=== PATIENT | female | born 1960 | race Caucasian/White ===

== ENCOUNTER → 2019-05-05 | Day surgery (SDC) | payer BC ==
[2019-05-02 15:03] LABS: BASOPHILS % 0.6 % (0.0-1.0); EOSINOPHILS # (AUTO) 0.2 (0.0-0.4); EOSINOPHILS % 2.4 % (0.0-6.0); HEMATOCRIT 42.8 % (34.2-44.1); LYMPHOCYTES # (AUTO) 2.4 (1.0-3.2); LYMPHOCYTES % 36.1 % (18.0-39.1); MEAN CORPUSCULAR HEMOGLOBIN 28.9 pg (28-32); MEAN CORPUSCULAR HGB CONC 32.7 g/dL (31-35); MEAN CORPUSCULAR VOLUME 88.4 fL (81-99); MONOCYTES # (AUTO) 0.5 (0.2-0.8); MONOCYTES % 7.4 % (4.4-11.3); NEUTROPHILS # (AUTO) 3.5 (2.1-6.9); PLATELET COUNT 315 x10e3/uL (140-360); RED BLOOD COUNT 4.84 x10e6/uL (3.6-5.1); RED CELL DISTRIBUTION WIDTH 13.2 % (11.7-14.4)
--- NOTE | 2019-05-02 15:06 | Diagnostic Imaging Report ---
EXAMINATION: CHEST 2 VIEWS INDICATION: Pre-admit. COMPARISON: None FINDINGS: TUBES and LINES: None. LUNGS: Lungs are well inflated. There is no evidence of pneumonia or pulmonary edema. PLEURA: No pleural effusion or pneumothorax. HEART AND MEDIASTINUM: The cardiomediastinal silhouette is unremarkable. BONES AND SOFT TISSUES: No acute osseous abnormality. UPPER ABDOMEN: No free air under the diaphragm. IMPRESSION: No acute radiographic abnormality. Signed by: Dr. Kayley Mejia MD on 05/02/2019 3:03 PM
[2019-05-02 15:18] LABS: ANION GAP 12.3 mmol/L (8-16); BLOOD UREA NITROGEN 19 mg/dL (7-26); BUN/CREATININE RATIO 23 (6-25); CALCIUM 10.2 mg/dL (8.4-10.2); CARBON DIOXIDE 29 mmol/L (22-29); CHLORIDE 101 mmol/L (98-107); CREATININE, SERUM 0.81 mg/dL (0.57-1.11); EST GLOMERULAR FILTRATION RATE > 60 ML/MIN (60-); GLUCOSE 81 mg/dL (74-118); POTASSIUM 4.3 mmol/L (3.5-5.1); SODIUM 138 mmol/L (136-145)
[~2019-05-05] MED LIST: BUPIVACAINE HCL 0.5% 10ML MPF VIAL INJ ONE; CEFAZOLIN SOD 2 GM/D5W 50ML 50 ML IV ONE; DEXAMETHASONE SOD PHOS INJ 4 MG/ML VIAL ONE; FENTANYL CITRATE/PF 100MCG/2 ML INJ ONE; KETOROLAC TROMETHAMINE 30 MG/ML VIAL ONE; LIDOCAINE HCL 2% LOCAL INJ 5 ML SDV VIAL INJ ONE; MIDAZOLAM HCL 2 MG/2 ML VIAL ONE; MUPIROCIN 2% OINT 22 GM TUBE ONE; ONDANSETRON HCL INJ 2MG/ML 2ML 2 MG/ML VIAL ONE; PROPOFOL IV EMULSION 10 MG/ML 20 ML VIAL ONE; SEVOFLURANE INHAL SOLN 250 ML PEN BTL ONE
--- OUTSIDE RECORDS SUMMARY | 2019-05-05 08:38 | XMS REPORT | Clinical Summary ---
Author Author [facility] Address Unknown Phone Unavailable Care Team Providers Care Gunner'S Mate Name Role Phone Aurelio Castro MD PCP Unavailable Allergies No Known Allergies Medications End Date Status Medication Sig Dispensed Refills Start Date Active levothyroxine (SYNTHROID, TK 1 T PO QD 0 LEVOTHROID) 112 MCG 6 tablet Active PARoxetine (PAXIL) 10 MG 0 tablet 6 Active VITAMIN D2 50,000 unit TK ONE C PO 3 capsule Q WEEK 6 Active levocetirizine (XYZAL) 5 Take 5 mg by 0 MG tablet mouth every evening. Active Problems Problem Noted Date Arthritis of knee 06/18/2016 Right knee pain 06/09/2016 Overview: " Pain, sore, popping, cracking; On and off for 6 months; 1 month " Per paper chart Social History Date Tobacco Use Types Packs/Day Years Used Never Smoker Smokeless Tobacco: Never Used Alcohol Use Drinks/Week oz/Week Comments Yes " seldom" per paper chart Sex Assigned at Date Recorded Not on file Industry Job Start Date Occupation Not on file Not on file Not on file Travel End Travel History Travel Start No recent travel history available. Last Filed Vital Signs Not on file Plan of Treatment Health Maintenance Due Date Last Done Comments COLONOSCOPY SCREENING 2011 SHINGLES VACCINES (#1) 2011 BREAST CANCER SCREENING 05/14/2019 05/14/2017, 10/09/2015, 10/08/2014, Additional history exists INFLUENZA VACCINE 06/22/2019 Results Not on fileafter 05/04/2018 Insurance Type Payer Benefit Subscriber ID Effective Phone Address Plan / Dates Group PPO BCBS BCBS xxxxxxxxxxxx [id number] CHOICE resent PPO/ANTHONY [employer]VILLO PPO Advance Directives Patient has advance care planning documents on file. For more information, megan castillo contact: Rene Montez [address] [place] [address]
--- OUTSIDE RECORDS SUMMARY | 2019-05-05 08:38 | XMS REPORT ---
Author Author [facility] Address Unknown Phone Unavailable Care Team Providers Care Hydrogeology Professor Name Role Phone WALDO MAGALLANES Unavailable Unavailable Problems This patient has no known problems. Allergies, Adverse Reactions, Alerts This patient has no known allergies or adverse reactions. Medications This patient has no known medications. Results Test Description Test Time Test Comments Text Results Atomic Results Result Comments CHEST 2 VIEWS 2019-05-02 15:01:00 [place] [address] Patient Name: LUI ADAMS MR #: [id number] : 1960 Age/Sex: 58/F Req #: [id number] Adm Physician: Ordered by: WALDO MAGALLANES DP Report #: [id number] Location: OR Room/Bed: Procedure: [id number] DX/CHEST 2 VIEWS Exam Date: 05/02/19 Exam Time: 1437 REPORT STATUS: Signed EXAMINATION: CHEST 2 VIEWS INDICATION: Pre-admit. COMPARISON: None FINDINGS: TUBES and LINES: None. LUNGS: Lungs are well inflated. There is no evidence of pneumonia or pulmonary edema. PLEURA: No pleural effusion or pneumothorax. HEART AND MEDIASTINUM: The cardiomediastinal silhouette is unremarkable. BONES AND SOFT TISSUES: No acute osseous abnormality. UPPER ABDOMEN: No free air under the diaphragm. IMPRESSION: No acute radiographic abnormality. Signed by: Dr. Susan Denney MD on 05/02/2019 3:03 PM Dictated By: SUSAN DENNEY MD [id number] Transcribed By: STEPHANIE on 05/02/19 1505 COPY TO: WALDO MAGALLANES DPM
[2019-05-05 13:30] VITALS: BP 120/76
--- NOTE | 2019-05-05 21:34 | Operative Report ---
DATE OF PROCEDURE: SURGEON: Lambert Pappas DPM The patient today complaining of a painful right foot, 58-year-old female. PREOPERATIVE DIAGNOSES: Plantar fasciitis, plantar calcaneal spur of the right foot. POSTOPERATIVE DIAGNOSES: Plantar fasciitis, plantar calcaneal spur of right foot. TITLE OF THE OPERATION: Endoscopic plantar fasciotomy of the right foot. ANESTHESIA: General endotracheal. HEMOSTASIS: Right thigh tourniquet at 350 mmHg. PROCEDURE IN DETAIL: The patient was taken to the operating room in a mildly sedated state, placed on the operating table in supine position. Following induction of general anesthetic, the right lower extremity was elevated to 60 degrees to exsanguinate before inflating the pneumatic thigh tourniquet to 350 mmHg to create good hemostasis. Right lower extremity was approached and a medial stab incision was placed. Cannula was inserted across the plantar aspect of the plantar fascia utilizing a hook knife, extending laterally and with entrance to the fascia on the medial aspect. The hook knife was drawn approximately usp across the plantar fascia. The underlying muscle belly was noted. The area was irrigated with copious amounts of sterile saline solution. All done under some combination of fluoroscopy and arthroscopic direct visualization. In direct visualization of the area after irrigation was closed with 4-0 nylon, blocked with 0.5 Marcaine and Decadron [place]. The plantar fascia was then treated with a flowable injection of human tissue allograft to facilitate healing and fill the void. This was accomplished via [employer] and deep closure with 4-0 Vicryl and skin closure with 4-0 nylon. The appropriate mildly compressive dressings were applied and the patient left the operating room, vital signs stable in apparent satisfactory condition, having tolerated both anesthetic and procedure very well. TITI [place]arrama/PEG /[id number]
== END | disposition home or self-care (01) ==
LOC: OR 08:36
PROVIDERS: ATTEND Podiatrist Foot Surgery
DX: M72.2 Plantar fascial fibromatosis (principal); M77.31 Calcaneal spur, right foot; E03.9 Hypothyroidism, unspecified; J45.909 Unspecified asthma, uncomplicated; Z88.6 Allergy status to analgesic agent; Z01.810 Encounter for preprocedural cardiovascular examination; Z01.812 Encounter for preprocedural laboratory examination; Z01.818 Encounter for other preprocedural examination
CPT/HCPCS: 29893; 36415; 71046; 80048; 85025; 93005; J0690; J1100; J1885; J2001; J2250; J2405; J2704; Q4100